=== PATIENT | female | born 1935 | race Caucasian/White ===

== ENCOUNTER 2021-12-18 07:28 | Day surgery (SDC) | payer OTHER ==
[~2021-12-18] VITALS: Ht 154.9 cm; Wt 55.3 kg
[2021-12-18] MEDS ORDERED: LIDOCAINE 2% 100 MG/5 ML UJET TP ONE (09:09)
[2021-12-18] MEDS ORDERED: fentaNYL citrate 0.05 MG/ML VIAL ONE (09:09)
[2021-12-18] MEDS ORDERED: fentaNYL citrate 0.05 MG/ML VIAL IVP ONE (09:55)
== END 2021-12-18 10:00 | disposition home or self-care (01) ==
LOC: MDS 07:28 → MMU 07:29 → MDS 10:00
PROVIDERS: ATTEND Internal Medicine Gastroenterology
DX: D64.9 Anemia, unspecified (principal); K57.30 Diverticulosis of large intestine without perforation or abscess without bleeding; K64.8 Other hemorrhoids; E11.9 Type 2 diabetes mellitus without complications; Z85.038 Personal history of other malignant neoplasm of large intestine; Z98.0 Intestinal bypass and anastomosis status; Z88.0 Allergy status to penicillin; Z79.899 Other long term (current) drug therapy
CPT/HCPCS: 45378; J3010